=== PATIENT | male | born 1985 | race Caucasian/White ===

== ENCOUNTER 2022-04-05 06:55 | Observation (INO) | payer SELFPAY ==
[~2022-04-05] VITALS: Ht 182.9 cm; Wt 161.0 kg
[2022-04-05] VITALS (7 sets, daily range): BP systolic 155–188; BP diastolic 102–122
[2022-04-05] MEDS ORDERED: SODIUM CHLORIDE 0.9% 1000ML 1,000 ML IV STA (07:11)
[2022-04-05] MEDS ORDERED: FENTANYL CITRATE/PF 100MCG/2 ML INJ IV PRN (07:15)
[2022-04-05] MEDS ORDERED: ONDANSETRON HCL INJ 2MG/ML 2ML 2 MG/ML VIAL IV PRN ×2 (07:15→09:45)
[2022-04-05 07:17] LABS: BASOPHILS % 0.2 % (0.0-1.0); EOSINOPHILS % 0.2 % (0.0-6.0); HEMATOCRIT 44.3 % (38.2-49.6); HEMOGLOBIN 15.4 g/dL (14.0-18.0); LYMPHOCYTES # (AUTO) 0.7 (1.0-3.2); LYMPHOCYTES % 5.3 % (18.0-39.1); MEAN CORPUSCULAR HEMOGLOBIN 32.3 pg (28-32); MEAN CORPUSCULAR HGB CONC 34.8 g/dL (31-35); MEAN CORPUSCULAR VOLUME 92.9 fL (81-99); MONOCYTES # (AUTO) 0.8 (0.2-0.8); MONOCYTES % 5.9 % (4.4-11.3); NEUTROPHILS # (AUTO) 11.6 (2.1-6.9); NEUTROPHILS % 87.4 % (38.7-80.0); PLATELET COUNT 228 x10e3/uL (140-360); RED BLOOD COUNT 4.77 x10e6/uL (4.3-5.7); RED CELL DISTRIBUTION WIDTH 12.3 % (11.7-14.4)
[2022-04-05 07:45] LABS: ALBUMIN 4.1 g/dL (3.5-5.0); ALBUMIN/GLOBULIN RATIO 1.1 (0.8-2.0); CALCIUM 8.8 mg/dL (8.4-10.2); CREATININE, SERUM 1.01 mg/dL (0.72-1.25)
[2022-04-05 08:06] LABS: CLARITY,URINE CLEAR (CLEAR); COLOR,URINE YELLOW (YELLOW); KETONES,URINE TRACE (NEGATIVE); LEUKOCYTE ESTERASE ,URINE NEGATIVE (NEGATIVE); NITRITE,URINE NEGATIVE (NEGATIVE); PROTEIN,URINE DIPSTICK 1+ (NEGATIVE)
[2022-04-05 08:11] LABS: BACTERIA,URINE MODERATE /HPF; EPITHELIAL CELLS,URINE FEW /LPF; RBC,URINE 0-5 /HPF (0-5); WBC,URINE (MAN) 0-5 /HPF (0-5)
[2022-04-05] MEDS ORDERED: SODIUM CHLORIDE 0.9% 1000ML 1,000 ML IV SCH (09:45)
[2022-04-05] MEDS ORDERED: METRONIDAZOLE 750MG/NS 150ML 150 ML IV SCH (10:00)
[2022-04-05] MEDS ORDERED: IBUPROFEN200 MG PO (10:48)
[2022-04-05] MEDS ORDERED: IBUPROFEN 400 MG PO PRN (12:15)
[2022-04-05] MEDS: LISINOPRIL 20 MG TAB PO SCH (12:45)
[2022-04-05] MEDS ORDERED: MELATONIN 5 MG TABLET PO PRN (12:45)
[2022-04-05] MEDS: HYDRALAZINE HCL 20 MG/ML VIAL IV PRN ×2 (12:45→16:33)
[2022-04-05] MEDS: DEXTROSE 5%/0.45% SOD CHL 1,000 ML IV SCH (12:45)
[2022-04-05] MEDS: METRONIDAZOLE 750MG/NS 150ML 150 ML IV SCH ×2 (12:45→21:15)
[2022-04-05] MEDS: IBUPROFEN 200 MG TAB PO PRN (12:45)
[2022-04-05] MEDS: Morphine 4mg Syringe 4 MG/ML INJ IV PRN ×2 (14:20→21:12)
[2022-04-06] MEDS: DEXTROSE 5%/0.45% SOD CHL 1,000 ML IV SCH ×2 (01:27→15:00)
[2022-04-06 02:41] VITALS: BP 159/101
[2022-04-06] MEDS: METRONIDAZOLE 750MG/NS 150ML 150 ML IV SCH ×2 (04:50→12:22)
[2022-04-06 05:56] VITALS: BP 144/94
[2022-04-06 05:57] LABS: BASOPHILS # (AUTO) 0.1 (0.0-0.1); BASOPHILS % 0.3 % (0.0-1.0); EOSINOPHILS % 0.1 % (0.0-6.0); HEMOGLOBIN 15.1 g/dL (14.0-18.0); LYMPHOCYTES # (AUTO) 1.1 (1.0-3.2); LYMPHOCYTES % 5.5 % (18.0-39.1); MEAN CORPUSCULAR HEMOGLOBIN 32.3 pg (28-32); MEAN CORPUSCULAR HGB CONC 35.1 g/dL (31-35); MEAN CORPUSCULAR VOLUME 92.1 fL (81-99); MONOCYTES # (AUTO) 1.6 (0.2-0.8); MONOCYTES % 8.3 % (4.4-11.3); NEUTROPHILS # (AUTO) 16.5 (2.1-6.9); NEUTROPHILS % 84.6 % (38.7-80.0); PLATELET COUNT 262 x10e3/uL (140-360); RED BLOOD COUNT 4.67 x10e6/uL (4.3-5.7); RED CELL DISTRIBUTION WIDTH 12.8 % (11.7-14.4)
[2022-04-06 06:25] LABS: ANION GAP 13.7 mmol/L (8-16); CALCIUM 8.3 mg/dL (8.4-10.2); CREATININE, SERUM 0.81 mg/dL (0.72-1.25); POTASSIUM 3.7 mmol/L (3.5-5.1)
[2022-04-06 08:00] VITALS: BP 128/98
[2022-04-06 08:05] LABS: BASOPHILS # (AUTO) 0.1 (0.0-0.1); BASOPHILS % 0.3 % (0.0-1.0); EOSINOPHILS % 0.1 % (0.0-6.0); HEMATOCRIT 44.1 % (38.2-49.6); HEMOGLOBIN 15.4 g/dL (14.0-18.0); LYMPHOCYTES # (AUTO) 1.4 (1.0-3.2); LYMPHOCYTES % 6.9 % (18.0-39.1); MEAN CORPUSCULAR HEMOGLOBIN 32.6 pg (28-32); MEAN CORPUSCULAR HGB CONC 34.9 g/dL (31-35); MEAN CORPUSCULAR VOLUME 93.4 fL (81-99); MONOCYTES # (AUTO) 1.8 (0.2-0.8); MONOCYTES % 8.8 % (4.4-11.3); NEUTROPHILS # (AUTO) 16.8 (2.1-6.9); PLATELET COUNT 278 x10e3/uL (140-360); RED BLOOD COUNT 4.72 x10e6/uL (4.3-5.7); RED CELL DISTRIBUTION WIDTH 12.7 % (11.7-14.4)
[2022-04-06] MEDS: LISINOPRIL 20 MG TAB PO SCH (09:25)
[2022-04-06 11:17] LABS: BASOPHILS % 0.2 % (0.0-1.0); EOSINOPHILS % 0.2 % (0.0-6.0); HEMATOCRIT 42.1 % (38.2-49.6); HEMOGLOBIN 14.7 g/dL (14.0-18.0); LYMPHOCYTES # (AUTO) 1.3 (1.0-3.2); LYMPHOCYTES % 7.5 % (18.0-39.1); MEAN CORPUSCULAR HEMOGLOBIN 32.5 pg (28-32); MEAN CORPUSCULAR HGB CONC 34.9 g/dL (31-35); MEAN CORPUSCULAR VOLUME 93.1 fL (81-99); MONOCYTES # (AUTO) 1.5 (0.2-0.8); MONOCYTES % 8.6 % (4.4-11.3); NEUTROPHILS % 82.7 % (38.7-80.0); PLATELET COUNT 245 x10e3/uL (140-360); RED BLOOD COUNT 4.52 x10e6/uL (4.3-5.7); RED CELL DISTRIBUTION WIDTH 12.7 % (11.7-14.4)
[2022-04-06 12:00] VITALS: BP 143/99
[2022-04-06] MEDS: IBUPROFEN 200 MG TAB PO PRN (12:23)
[2022-04-06 16:00] VITALS: BP 134/95
[2022-04-06] MEDS ORDERED: LISINOPRIL10 MG PO (16:08)
[2022-04-06] MEDS ORDERED: FLAGYL375 MG PO (16:09)
[2022-04-06] MEDS ORDERED: CIPRO500 MG PO (16:09)
[2022-04-06] MEDS ORDERED: METRONIDAZOLE250 MG PO (16:10)
== END 2022-04-06 18:32 | disposition home or self-care (01) ==
LOC: ER 07:02 → ERHOLD 09:42 → MED/SURG3 10:24
PROVIDERS: ADMIT Internal Medicine; ATTEND Internal Medicine
DX: K80.00 Calculus of gallbladder with acute cholecystitis without obstruction (principal); U07.1 COVID-19; Z91.041 Radiographic dye allergy status; I10 Essential (primary) hypertension; E66.01 Morbid (severe) obesity due to excess calories; Z28.310 Unvaccinated for COVID-19; Z28.20 Immunization not carried out because of patient decision for unspecified reason; E87.2 Acidosis; Z68.42 Body mass index [BMI] 45.0-49.9, adult
CPT/HCPCS: 36415 ×2; 76705; 80048; 80053; 81001; 83605 ×2; 83690; 85025 ×2; 87040; 94799; 99284; G0378 ×2; J0360; J0696 ×2; J2270; J2405; J3010; J7030; U0002